=== PATIENT | female | born 1980 | race Caucasian/White ===

== ENCOUNTER 2023-07-15 12:33 | Emergency (ER) | payer BC, SELFPAY ==
[2023-07-15 12:45] VITALS: BP 149/94
[2023-07-15 13:07] LABS: % Basophils 0.6 % (0-2); % Eosinophils 1.7 % (0-6); % Immature Granulocytes 0.5 % (0-0.5); % Lymphocytes 19.7 % (20.5-51.1); % Monocytes 7.8 % (1.7-9.3); % Neutrophils 69.7 % (42.2-75.2); Absolute Basophils 0.1 10^3/uL (0-0.2); Absolute Eosinophils 0.2 10^3/uL (0-0.7); Absolute Lymphocytes 1.7 10^3/uL (1.2-3.4); Absolute Monocytes 0.7 10^3/uL (0.1-0.6); Absolute Neutrophils 6.2 10^3/uL (1.4-6.5); Hematocrit 38.5 % (37.0-47.0); Hemoglobin 13.5 g/dL (12.0-16.0); Mean Corp Hgb Conc. 35.1 g/dL (33.0-37.0); Mean Corpuscular Hgb 31.5 pg (27.0-31.0); Mean Corpuscular Volume 89.7 fL (81.0-99.0); Mean Platelet Volume 11.1 fL (7.4-10.4); Nucleated Red Blood Cells % 0 %; Platelet Count 190 10^3/uL (130-400); Red Blood Cell Count 4.29 10^6/uL (4.20-5.40); White Blood Cell Count 8.8 10^3/uL (4.8-10.8)
[2023-07-15 13:20] LABS: ALT (SGPT) 14 U/L (0-35); AST (SGOT) 19 U/L (14-36); Albumin 3.8 g/dl (3.5-5.0); Alkaline Phosphatase 63 U/L (38-126); Blood Urea Nitrogen 13 mg/dl (7-17); Calcium 9.5 mg/dl (8.4-10.2); Carbon Dioxide 21 mmol/L (22-30); Chloride 107 mmol/L (98-107); Glucose 100 mg/dl (70-99); Potassium 4.4 mmol/L (3.5-5.1); Sodium 134 mmol/L (135-145); Total Bilirubin 0.5 mg/dl (0.2-1.3); Total Protein 6.8 g/dl (6.3-8.2); eGFR > 60.00
[2023-07-15 13:22] LABS: COVID-19 Antigen Negative (Negative)
[2023-07-15 14:52] LABS: Troponin I < 0.012 ng/ml
--- NOTE | 2023-07-15 14:53 | ED.GENMED ---
History of Present Illness
General
Chief Complaint: Cough
Source: patient
Exam Limitations: none
Time Seen by Provider: 07/15/23 14:09
Nursing documentation reviewed up to this point in time: agreed with
Travel History
Have you had any contact with someone who has COVID-19?: No
Do you have any symptoms of coronavirus? Fever > 100 degrees, chills, cough, shortness of breath, sore throat, loss of taste or smell, muscle aches, or headache?: Yes
Symptoms:: SOB and cough
History of Present Illness
History of Present Illness:
Patient is a 43-year-old female who presents to the emergency department complaining of nasal congestion, congested cough, wheezing. Patient states that at the end of May her 1-year-old had influenza A and she had similar symptoms with fever,
chills, malaise, nasal congestion and cough. Patient continued beginning of June and her physician put her on amoxicillin. Week ago the patient's son came home with a upper respiratory infection and she developed the same symptoms. Patient was
then put on Ceftin. Patient is in her first trimester. Patient denies any history of asthma or fumes. Patient denies any history of smoking. Patient's EDC is January,. Patient is 3 para 2-0-0-2. Patient denies any GI or
symptoms. Patient does have some shortness of breath with coughing.
Past History
Past History
ED Past Medical History: None
Social History
Tobacco: Non-smoker
Personal:
Living: with family
Review of Systems
Review of Systems
All Other Systems: ROS reviewed and negative except as documented in HPI and ROS
Constitutional: Reports fatigue; Denies fever or chills
EENT: Reports runny nose
Respiratory: Reports cough and trouble breathing
Cardiac: Reports no symptoms
ABD/GI: Reports no symptoms
: Reports no symptoms
Musculoskeletal: Reports no symptoms
Skin: Reports no symptoms
Neurological: Reports no symptoms
Hematologic/Lymphatic: Reports no symptoms
Phy Exam
Physical Exam
Physical Exam:
Physical Exam
General: mild to moderate distress, alert and appropriate, well nourished, well hydrated
HENT: Normocephalic, supple with no lymphadenopathy, no thyromegaly
Eyes: Clear sclera, conjuctiva without injection
Heart: Regular rhythm and rate. No S3, S4. No murmur.
Lungs: No respiratory distress, no stridor, lung sounds with expiratory and expiratory wheezing as well as scattered rhonchi but otherwise equal bilaterally
Abdomen: Soft, nontender, BS good
Neuro: Alert and oriented x 3, CN II - XII intact, no motor focality, no cerebellar dysfunction
Skin: no rash
Psychiatric: well kept. interactive and cooperative
Extremities: No edema, cyanosis, tenderness, Good and equal peripheral pulses.
Course
Orders/Labs/Results
Orders:
Orders
07/15/23 12:50
ECG [Electrocardiogram (*1)] Urgent
Reason for Study: Chest Pain
EKG- Treatment ONCE
07/15/23 13:00
COVID-19 Antigen Urgent
Source: Nasal Swab
Complete Blood Count/With Diff Urgent
Comprehensive Metabolic Panel Urgent
Troponin I Urgent
Influenza A+B Rapid Molecular Urgent
PASCUAL Source: Nasal Swab
Specimen Description:
07/15/23 14:39
Ipratropium/Albuterol Sulfate [Duoneb] 3 ml INH R NOW STA
Prednisone [Deltasone] 50 mg PO NOW STA
Abnormal Lab Results
07/15/23
13:00
MCH 31.5 H pg
(27.0-31.0)
MPV 11.1 H fL
(7.4-10.4)
Absolute Monos (auto) 0.7 H 10^3/uL
(0.1-0.6)
Lymphocytes % 19.7 L %
(20.5-51.1)
Sodium 134 L mmol/L
(135-145)
Carbon Dioxide 21 L mmol/L
(22-30)
Creatinine 0.5 L mg/dL
(0.6-1.0)
Glucose 100 H mg/dl
(70-99)
07/15/23 13:00
07/15/23 13:00
Vital Signs
Initial and Last Documented VS:
Initial Vital Signs
Temp Pulse Resp BP Pulse Ox
97.8 F 116 22 149/94 96
07/15/23 12:45 07/15/23 12:45 07/15/23 12:45 07/15/23 12:45 07/15/23 12:45
Last Documented Vital Signs
Temp Pulse Resp BP Pulse Ox
97.8 F 116 22 149/94 96
07/15/23 12:45 07/15/23 12:45 07/15/23 12:45 07/15/23 12:45 07/15/23 12:45
*Radiology
Radiology exam reviewed: other (na)
*Pulse Oximetry
Patient hypoxic: no
*EKG
Interpreted by ED Provider?: NA
*Fish House Worker Interpretation
Rate: Fish House Worker- N/A
*Critical Care Note
Total Time (30-74mins, 75-104mins- exclusive of procedures): Not Applicable
ED Attending Note
-
Portions of this chart may have been created with voice recognition software.� Occasional wrong word or��sound alike� substitutions may have occurred due to the inherent limitations of voice recognition software.
Discharge Plan
Departure
Patient Disposition: Home (Routine Discharge)
Date of Disposition: 07/15/23
Time of Disposition: 15:21
Patient with high blood pressure during this ER visit?: Yes
Condition: Fair
Covid-19: Negative COVID-19
Discharge Problem:
Acute bronchitis
Instructions: Acute Bronchitis, Adult (DC), BLOOD PRESSURE
Prescriptions:
New
ipratropium-albuterol 0.5 mg-3 mg(2.5 mg base)/3 mL solution for nebulization
3 ml inhalation Q6H PRN (Reason: shortness of breath or wheezing) Qty: 180 0RF
prednisone 20 mg tablet
20 mg PO BID Qty: 14 0RF
No Action
acetaminophen 325 mg Tablet
650 mg PO Q4HPRN PRN (Reason: mild pain) Qty: 0 0RF
ibuprofen 600 mg Tablet
600 mg PO Q6HPRN PRN (Reason: moderate pain/cramps) Qty: 0 0RF
Referrals:
Tracey Perez, [Family Provider] - Follow up in 5-7 days
Activity Restrictions/Additional Instructions:
Make sure to follow-up with both your physician and manager engagement. Drink plenty of fluids. Any increasing shortness of breath, fever or chills please return.
Interventions
Interventions:
*Risk Screen - Suicide Last Done: 07/15/23 12:45
*General Assessment Last Done: 07/15/23 12:45
*Neglect/Abuse Screening Last Done: 07/15/23 12:45
Discharge Date and Time
Print Language: SWEDISH
[2023-07-15 15:21] VITALS: BMI 36.8
[2023-07-15 15:27] VITALS: BP 131/88
[2023-07-15] MEDS: DELTASONE 50 MG PO (15:28)
[2023-07-15] MEDS: DUONEB 3 ML INH (15:28)
== END 2023-07-15 16:19 | disposition home or self-care (01) ==
LOC: EMR 12:33
PROVIDERS: Emergency Medicine; EMERGENCY PHYSICIAN Emergency Medicine; FAMILY PHYSICIAN Family Medicine
DX: J20.9 Acute bronchitis, unspecified (principal); R03.0 Elevated blood-pressure reading, without diagnosis of hypertension
CPT/HCPCS: 99284; 94640; 80053; 84484; 85025; 87502; 87811; 93005

== ENCOUNTER → 2023-08-01 13:29 | Outpatient (REF) | payer BC, SELFPAY | LOC: PNTC 13:29 | PROVIDERS: ATTENDING PHYSICIAN Obstetrics & Gynecology | DX: Z36.0 Encounter for antenatal screening for chromosomal anomalies (principal); Z36.82 Encounter for antenatal screening for nuchal translucency | CPT/HCPCS: 76816 ==

== ENCOUNTER → 2023-08-25 11:34 | Outpatient (REF) | payer BC, SELFPAY | LOC: PNTC 11:34 | PROVIDERS: ATTENDING PHYSICIAN Obstetrics & Gynecology | DX: O09.529 Supervision of elderly multigravida, unspecified trimester (principal); O99.210 Obesity complicating pregnancy, unspecified trimester | CPT/HCPCS: 76805 ==

== ENCOUNTER → 2023-09-26 13:33 | Outpatient (REF) | payer BC, SELFPAY | LOC: PNTC 13:33 | PROVIDERS: ATTENDING PHYSICIAN Obstetrics & Gynecology | DX: O99.210 Obesity complicating pregnancy, unspecified trimester (principal); O09.521 Supervision of elderly multigravida, first trimester | CPT/HCPCS: 76811 ==

== ENCOUNTER → 2023-10-31 13:26 | Outpatient (REF) | payer BC, SELFPAY | LOC: PNTC 13:26 | PROVIDERS: ATTENDING PHYSICIAN Obstetrics & Gynecology | DX: O99.210 Obesity complicating pregnancy, unspecified trimester (principal); O09.519 Supervision of elderly primigravida, unspecified trimester | CPT/HCPCS: 76816 ==

== ENCOUNTER → 2023-12-15 13:32 | Outpatient (REF) | payer BC, SELFPAY | LOC: PNTC 13:32 | PROVIDERS: ATTENDING PHYSICIAN Obstetrics & Gynecology | DX: O99.210 Obesity complicating pregnancy, unspecified trimester (principal); O99.519 Diseases of the respiratory system complicating pregnancy, unspecified trimester | CPT/HCPCS: 76816 ==

== ENCOUNTER 2023-12-27 14:24 | Observation (INO) | payer BC, SELFPAY ==
[2023-12-27 14:32] VITALS: BP 145/82; BMI 39.9
[2023-12-27 15:01] LABS: Hematocrit 36.8 % (37.0-47.0); Hemoglobin 12.8 g/dL (12.0-16.0); Mean Corp Hgb Conc. 34.8 g/dL (33.0-37.0); Mean Corpuscular Hgb 32.6 pg (27.0-31.0); Mean Corpuscular Volume 93.6 fL (81.0-99.0); Mean Platelet Volume 11.6 fL (7.4-10.4); Platelet Count 169 10^3/uL (130-400); Red Blood Cell Count 3.93 10^6/uL (4.20-5.40); White Blood Cell Count 11.6 10^3/uL (4.8-10.8)
[2023-12-27 15:20] LABS: Urine Protein < 5 mg/dl
[2023-12-27 15:21] LABS: ALT (SGPT) 10 U/L (0-35); AST (SGOT) 18 U/L (14-36); Albumin 3.2 g/dl (3.5-5.0); Alkaline Phosphatase 97 U/L (38-126); Blood Urea Nitrogen 13 mg/dl (7-17); Calcium 9.4 mg/dl (8.4-10.2); Carbon Dioxide 24 mmol/L (22-30); Chloride 104 mmol/L (98-107); Estimated Creatinine Clearance > 125 ml/min; Glucose 163 mg/dl (70-99); Potassium 4.3 mmol/L (3.5-5.1); Sodium 136 mmol/L (135-145); Total Bilirubin 0.5 mg/dl (0.2-1.3); Total Protein 5.6 g/dl (6.3-8.2); eGFR > 60.00
== END 2023-12-27 16:20 | disposition home or self-care (01) ==
LOC: PNTC-IN 14:24
PROVIDERS: ADMITTING PHYSICIAN Obstetrics & Gynecology; ATTENDING PHYSICIAN Obstetrics & Gynecology
DX: O14.03 Mild to moderate pre-eclampsia, third trimester (principal); O99.213 Obesity complicating pregnancy, third trimester; O09.513 Supervision of elderly primigravida, third trimester; E66.8 Other obesity; Z3A.34 34 weeks gestation of pregnancy
CPT/HCPCS: 59025; 76815; 80053; 82570; 84156; 85027; G0378

== ENCOUNTER → 2024-01-03 13:02 | Outpatient (REF) | payer BC, SELFPAY | LOC: PNTC 13:02 | PROVIDERS: ATTENDING PHYSICIAN Obstetrics & Gynecology | DX: O99.210 Obesity complicating pregnancy, unspecified trimester (principal); O09.519 Supervision of elderly primigravida, unspecified trimester | CPT/HCPCS: 59025; 76815 ==

== ENCOUNTER → 2024-01-10 13:35 | Outpatient (REF) | payer BC, SELFPAY | LOC: PNTC 13:35 | PROVIDERS: ATTENDING PHYSICIAN Obstetrics & Gynecology | DX: O99.210 Obesity complicating pregnancy, unspecified trimester (principal); O09.519 Supervision of elderly primigravida, unspecified trimester | CPT/HCPCS: 59025; 76816 ==

== ENCOUNTER → 2024-01-17 13:35 | Outpatient (REF) | payer BC, SELFPAY | LOC: PNTC 13:35 | PROVIDERS: ATTENDING PHYSICIAN Obstetrics & Gynecology | DX: O09.529 Supervision of elderly multigravida, unspecified trimester (principal); O99.210 Obesity complicating pregnancy, unspecified trimester | CPT/HCPCS: 36415; 59025; 76815 ==

== ENCOUNTER 2024-01-17 19:28 | Inpatient (IN) | payer BC, SELFPAY ==
[2024-01-17 19:46] VITALS: BMI 42.1
[2024-01-17 20:07] LABS: % Basophils 0.3 % (0-2); % Eosinophils 0.9 % (0-6); % Immature Granulocytes 0.6 % (0-0.5); % Lymphocytes 18.3 % (20.5-51.1); % Monocytes 5.6 % (1.7-9.3); % Neutrophils 74.3 % (42.2-75.2); Absolute Eosinophils 0.1 10^3/uL (0-0.7); Absolute Immature Granulocytes 0.1 10^3/uL (0-0.05); Absolute Lymphocytes 1.7 10^3/uL (1.2-3.4); Absolute Monocytes 0.5 10^3/uL (0.1-0.6); Absolute Neutrophils 7.1 10^3/uL (1.4-6.5); Hematocrit 33.2 % (37.0-47.0); Hemoglobin 11.5 g/dL (12.0-16.0); Mean Corp Hgb Conc. 34.6 g/dL (33.0-37.0); Mean Corpuscular Hgb 30.9 pg (27.0-31.0); Mean Corpuscular Volume 89.2 fL (81.0-99.0); Mean Platelet Volume 11.9 fL (7.4-10.4); Nucleated Red Blood Cells % 0 %; Platelet Count 177 10^3/uL (130-400); Red Blood Cell Count 3.72 10^6/uL (4.20-5.40); Red Cell Dist. Width 12.8 % (11.5-14.5); White Blood Cell Count 9.5 10^3/uL (4.8-10.8)
[2024-01-17 20:33] LABS: ALT (SGPT) 13 U/L (0-35); AST (SGOT) 21 U/L (14-36); Albumin 3.2 g/dl (3.5-5.0); Alkaline Phosphatase 118 U/L (38-126); Blood Urea Nitrogen 19 mg/dl (7-17); Calcium 9.6 mg/dl (8.4-10.2); Carbon Dioxide 20 mmol/L (22-30); Chloride 106 mmol/L (98-107); Estimated Creatinine Clearance > 125 ml/min; Glucose 127 mg/dl (70-99); Potassium 4.4 mmol/L (3.5-5.1); Sodium 138 mmol/L (135-145); Total Bilirubin 0.4 mg/dl (0.2-1.3); Total Protein 5.7 g/dl (6.3-8.2); eGFR > 60.00
[2024-01-17] MEDS: CYTOTEC 25 MICROGRAM PO (21:04)
[2024-01-17 21:43] VITALS: BP 150/85
[2024-01-17 22:39] LABS: Urine Albumin Trace (Neg - Trace); Urine Bilirubin Negative (Negative); Urine Character Clear (Clear); Urine Color Yellow; Urine Glucose Negative (Negative); Urine Ketone Negative (Negative); Urine Leukocyte Negative (Negative); Urine Nitrite Negative (Negative); Urine Occult Blood Negative (Negative); Urine Specific Gravity 1.025 (<1.030); Urine Urobilinogen Negative (Neg - 1+)
[2024-01-17 22:53] LABS: Protein/creatinine Ratio 0.2; Urine Protein 21 mg/dl
[2024-01-18] MEDS: CYTOTEC 50 MICROGRAM PO ×2 (00:59→05:27)
[2024-01-18] MEDS: LR 1000 IV ×2 (08:26→09:54)
[2024-01-18] MEDS: PITOCIN 30 UNITS/NSS 500 ML IV ×2 (08:48→11:57)
[2024-01-18] MEDS: FENTANYL/BUPIVACAINE 100 EPIDURAL (09:35)
[2024-01-18] MEDS: SUBLIMAZE 100 MCG EPIDURAL (09:35)
[2024-01-18] MEDS: TYLENOL 650 MG PO (23:41)
[2024-01-18] MEDS: MOTRIN 600 MG PO (23:41)
[2024-01-19 07:19] LABS: Hematocrit 32.3 % (37.0-47.0); Hemoglobin 11.1 g/dL (12.0-16.0); Mean Corp Hgb Conc. 34.4 g/dL (33.0-37.0); Mean Corpuscular Hgb 31.4 pg (27.0-31.0); Mean Corpuscular Volume 91.5 fL (81.0-99.0); Platelet Count 142 10^3/uL (130-400); Red Blood Cell Count 3.53 10^6/uL (4.20-5.40)
[2024-01-19] MEDS: PRENATAL PLUS 1 TABLET PO (07:55)
[2024-01-19] MEDS: MOTRIN 600 MG PO ×3 (07:56→21:03)
[2024-01-19] MEDS: TYLENOL 650 MG PO ×2 (07:56→15:14)
[2024-01-19] MEDS: SENOKOT-S 1 TABLET PO (07:56)
[2024-01-20] MEDS: TYLENOL 650 MG PO (06:22)
[2024-01-20] MEDS: MOTRIN 600 MG PO (06:23)
[2024-01-20] MEDS: SENOKOT-S 1 TABLET PO (08:03)
[2024-01-20] MEDS: PRENATAL PLUS 1 TABLET PO (08:03)
[2024-01-20 10:37] LABS: Syphilis/T. pallidum Ab Reflex Negative (Negative)
== END 2024-01-20 11:25 | disposition home or self-care (01) | DRG 807 ==
LOC: LDRP 19:28
PROVIDERS: Obstetrics & Gynecology; ADMITTING PHYSICIAN Obstetrics & Gynecology; ATTENDING PHYSICIAN Obstetrics & Gynecology
PROC: 3E033VJ Introduction of Other Hormone into Peripheral Vein, Percutaneous Approach (ICD-10-PCS; 2024-01-18)
PROC: 0HQ9XZZ Repair Perineum Skin, External Approach (ICD-10-PCS; 2024-01-18)
PROC: 10E0XZZ Delivery of Products of Conception, External Approach (ICD-10-PCS; 2024-01-18)
PROC: 10907ZC Drainage of Amniotic Fluid, Therapeutic from Products of Conception, Via Natural or Artificial Opening (ICD-10-PCS; 2024-01-18)
DX: O14.04 Mild to moderate pre-eclampsia, complicating childbirth (principal); Z37.0 Single live birth; O70.0 First degree perineal laceration during delivery; O76 Abnormality in fetal heart rate and rhythm complicating labor and delivery; O62.4 Hypertonic, incoordinate, and prolonged uterine contractions; Z3A.37 37 weeks gestation of pregnancy
CPT/HCPCS: 88307; 36415; 59025; 80053; 81003; 82570; 84156; 85025; 85027; 86780; 86850; 86900; 86901

== ENCOUNTER 2024-01-27 10:31 | Observation (INO) | payer BC, SELFPAY ==
[2024-01-27 10:41] VITALS: BP 144/88; BMI 37.6
[2024-01-27] MEDS: TYLENOL 1000 MG PO (11:06)
[2024-01-27 11:17] LABS: Urine Albumin Trace (Neg - Trace); Urine Bilirubin Negative (Negative); Urine Character Clear (Clear); Urine Color Yellow; Urine Glucose Negative (Negative); Urine Ketone Negative (Negative); Urine Leukocyte 1+ (Negative); Urine Nitrite Negative (Negative); Urine Occult Blood 4+ (Negative); Urine Urobilinogen Negative (Neg - 1+)
[2024-01-27 11:22] LABS: % Basophils 0.8 % (0-2); % Eosinophils 2.4 % (0-6); % Immature Granulocytes 0.5 % (0-0.5); % Lymphocytes 30.8 % (20.5-51.1); % Monocytes 6.2 % (1.7-9.3); % Neutrophils 59.3 % (42.2-75.2); Absolute Basophils 0.1 10^3/uL (0-0.2); Absolute Eosinophils 0.2 10^3/uL (0-0.7); Absolute Lymphocytes 2.3 10^3/uL (1.2-3.4); Absolute Monocytes 0.5 10^3/uL (0.1-0.6); Absolute Neutrophils 4.4 10^3/uL (1.4-6.5); Hematocrit 41.6 % (37.0-47.0); Hemoglobin 14.4 g/dL (12.0-16.0); Mean Corp Hgb Conc. 34.6 g/dL (33.0-37.0); Mean Corpuscular Hgb 31.9 pg (27.0-31.0); Mean Corpuscular Volume 92.2 fL (81.0-99.0); Mean Platelet Volume 11.1 fL (7.4-10.4); Nucleated Red Blood Cells % 0 %; Platelet Count 274 10^3/uL (130-400); Red Blood Cell Count 4.51 10^6/uL (4.20-5.40); Red Cell Dist. Width 12.3 % (11.5-14.5); White Blood Cell Count 7.4 10^3/uL (4.8-10.8)
[2024-01-27 11:29] LABS: Urine Urothelial Cell 0-2 /LPF (FEW)
[2024-01-27 11:41] LABS: ALT (SGPT) 25 U/L (0-35); AST (SGOT) 23 U/L (14-36); Albumin 4.1 g/dl (3.5-5.0); Alkaline Phosphatase 114 U/L (38-126); Blood Urea Nitrogen 18 mg/dl (7-17); Calcium 10.4 mg/dl (8.4-10.2); Carbon Dioxide 26 mmol/L (22-30); Chloride 105 mmol/L (98-107); Estimated Creatinine Clearance 103 ml/min; Glucose 79 mg/dl (70-99); Potassium 4.8 mmol/L (3.5-5.1); Sodium 139 mmol/L (135-145); Total Bilirubin 0.7 mg/dl (0.2-1.3); Total Protein 6.7 g/dl (6.3-8.2); eGFR > 60.00
[2024-01-27 11:49] LABS: Protein/creatinine Ratio 0.4; Urine Protein 24 mg/dl
== END 2024-01-27 14:28 | disposition home or self-care (01) ==
LOC: LDRP 10:31
PROVIDERS: ADMITTING PHYSICIAN Obstetrics & Gynecology
DX: O14.05 Mild to moderate pre-eclampsia, complicating the puerperium (principal); R51.9 Headache, unspecified; O99.285 Endocrine, nutritional and metabolic diseases complicating the puerperium; E28.2 Polycystic ovarian syndrome; Z28.310 Unvaccinated for COVID-19
CPT/HCPCS: 80053; 81003; 81015; 82570; 84156; 85025; G0378